=== PATIENT | female | born 1975 | race Caucasian/White ===

== ENCOUNTER 2016-10-06 10:12 | Day surgery (SDC) | payer BC ==
[~2016-10-06] VITALS: Ht 165.1 cm; Wt 86.2 kg
[~2016-10-06 10:12] MED LIST: CLC500CT PO; ESCI20TA PO; FRS325T PO; IBP600T1 PO; IBUP-1780 PO; OXYC-12 PO; OXYC-465 PO; PREN1TAB39 PO
[2016-10-06 10:18] VITALS: BP 133/91
[2016-10-06] MEDS ORDERED: ceFAZolin 1 GM/NS 50 ML IVPB IV ONE ×2 (10:45)
[2016-10-06] MEDS ORDERED: LACTATED RINGERS 1,000 ML IV PRN (11:02)
[2016-10-06 11:13] LABS: BASOPHILS % (AUTO) 0 % (0-10); EOSINOPHILS # (AUTO) 0.1 10^3/uL (0.0-0.3); EOSINOPHILS % (AUTO) 1 % (0-10); LYMPHOCYTES # (AUTO) 1.5 X 10^3 (1.0-4.0); LYMPHOCYTES % (AUTO) 22 % (12-44); MEAN CORPUSCULAR HEMOGLOBIN 29 PG (25-34); MEAN CORPUSCULAR HGB CONC 35 G/DL (32-36); MEAN CORPUSCULAR VOLUME 85 FL (80-99); MEAN PLATELET VOLUME 9.2 FL (7.4-10.4); MONOCYTES # (AUTO) 0.5 X 10^3 (0.0-1.0); MONOCYTES % (AUTO) 7 % (0-12); NEUTROPHILS # (AUTO) 4.9 X 10^3 (1.8-7.8); NEUTROPHILS % (AUTO) 70 % (42-75); PLATELET COUNT 215 10^3/uL (130-400); RED BLOOD COUNT 4.52 10^6/uL (4.35-5.85)
[2016-10-06] MEDS ORDERED: FAMOTIDINE 20MG/2ML IV (PEPCID) IV ONE (11:15)
[2016-10-06] MEDS ORDERED: ONDANSETRON 4 MG/2 ML (SDV) Z0FRAN IV ONE (11:15)
[2016-10-06] MEDS ORDERED: DEXAMETHASONE 10 MG/ML (DECADRON) 1 ML VIAL ONE (11:33)
[2016-10-06] MEDS ORDERED: ONDANSETRON 4 MG/2 ML (SDV) Z0FRAN ONE (11:33)
[2016-10-06] MEDS ORDERED: MIDAZOLAM 2 MG/2 ML (VERSED) VIAL ONE (11:33)
[2016-10-06] MEDS ORDERED: fentaNYL INJECTION 100 MCG/2 ML AMP ONE (11:33)
[2016-10-06] MEDS ORDERED: LIDOCAINE PF 2% 5 ML (XYLOCAINE) VIAL ONE (11:33)
[2016-10-06] MEDS ORDERED: SEVOFLURANE (ULTANE) 15 ML INHAL SOLN ONE (11:33)
[2016-10-06] MEDS ORDERED: proPOfol 200 MG/20 ML (DIPRIVAN) VIAL IV ONE (11:33)
[2016-10-06] MEDS ORDERED: LACTATED RINGERS 1,000 ML IV ONE (11:33)
[2016-10-06] MEDS ORDERED: BUP/EPI 0.5% 1:200,000 (MARCAINE) 10ML VIAL IJ ONE (11:44)
[2016-10-06] MEDS ORDERED: PNV11TAB5 PO (11:56)
--- NOTE | 2016-10-06 12:13 | Progress Note-Pre Operative ---
Pre-Operative Progress Note H&P Reviewed The H&P was reviewed, patient examined and no changes noted. Date Seen by Provider: Oct 06, 2016 Time Seen by Provider: 12:13 Date H&P Reviewed: Oct 06, 2016 Time H&P Reviewed: 12:13 Pre-Operative Diagnosis: missed MICAH PETERSON MD Oct 06, 2016 12:13 pm
[2016-10-06] MEDS ORDERED: D5 LR IV SOLUTION 1,000 ML IV SCH (12:14)
--- NOTE | 2016-10-06 12:14 | Progress Note-Post Operative ---
Post-Operative Progess Note Surgeon (s)/Wood Pattern Maker (s) Surgeon MICAH PETERSON MD Wood Pattern Maker: none Pre-Operative Diagnosis missed Post-Operative Diagnosis same with pathology pending Procedure & Operative Findings Date of Procedure 10/06/16 Procedure Performed/Findings D&C Anesthesia Type Gen. Estimated Blood Loss Estimated blood loss (mL): less than 100cc Specimens/Packing Specimens Removed uterine contents/products of conception Packing: none MICAH PETERSON MD Oct 06, 2016 12:14
[2016-10-06] MEDS ORDERED: MEPERIDINE (DEMEROL) INJ 100 MG/ML IM ONE (12:15)
[2016-10-06] MEDS ORDERED: KETOROLAC 30 MG/ML VIAL IVP ONE (12:15)
[2016-10-06] MEDS ORDERED: PROMETHAZINE INJ 25 MG/ML (PHENERGAN) AMP IM ONE (12:15)
[2016-10-06] MEDS ORDERED: ONDANSETRON 4 MG/2 ML (SDV) Z0FRAN IVP PRN ×2 (12:15→13:15)
[2016-10-06] MEDS ORDERED: oxyCODONE/APAP 10/325MG (PERCOCET 10) TABLET PO PRN (12:15)
[2016-10-06] MEDS ORDERED: OXYC-202 PO ×2 (12:16→14:34)
--- NOTE | 2016-10-06 12:17 | Discharge Instructions ---
Discharge Instructions Discharge Medications New, Converted or Re-Newed RX: RX on Chart Patient Instructions Patient Instructions: as directed Return to The Hospital For: as directed Activity & Diet Discharge Diet: No Restrictions Activity as Tolerated: Yes Orders-Post D/C & Referrals Follow Up Appt: Call to make follow up appt. for patient in 2 weeks. Activity: Rest for 24 hours, than as tolerated. Diet: As tolerated-Clear Liquids only if nauseated. May shower or tub bathe as desired. No driving for 24 hours, no alcoholic beverages for 24 hours, and nothing per vagina (no tampons, douching, or [id number]) for 2 weeks. Patient to return to the clinic as soon as possible for: Temperature greater than 101F, Severe Pain, Foul discharge from incision or vagina, Excessive Bleeding (more than a period). MICAH PETERSON MD Oct 06, 2016 12:17 pm
--- OUTSIDE RECORDS SUMMARY | 2016-10-06 12:22 | XMS REPORT | Continuity of Care Document ---
Author Author [facility] Organization [facility] Address Unknown Phone Unavailable Allergies Active Description Code Type Severity Reaction Onset Reported/Identified Relationship to Patient Clinical Status Yes NKANo Known Allergies NKA Miscellaneous Allergy Unknown N/ A 01/11/2006 Yes No Known Drug Allergies [id number] Drug Allergy Mild N/A 01/09/2008 Medications Problems Date Dx Coded Attending Type Code Diagnosis Diagnosed By 10/28/2010 Ot 280.9 IRON DEFIC ANEMIA NOS 10/28/2010 Ot 285.1 AC POSTHEMORRHAG ANEMIA 10/28/2010 Ot 648.21 ANEMIA-DELIVERED 10/28/2010 Ot 648.22 ANEMIA-DELIVERED W P/P 10/28/2010 Ot 654.21 PREV DELIVRY W/ OR W/O MENT ANT 10/28/2010 Ot 663.31 CORD ENTANGLE NEC-DELIV 10/28/2010 Ot V06.1 [id number], COMBINED [ 10/28/2010 Ot V27.0 DELIVER-SINGLE LIVEBORN 12/21/2011 Ot 564.00 UNSPEC CONSTIPATION 12/21/2011 Ot 787.99 OTHER GI SYSTEM SYMPTOMS 10/26/2014 Ot 654.23 10/26/2014 Ot V72.63 10/26/2014 Ot V74.8 10/26/2014 Ot 564.00 10/26/2014 Ot 787.3 10/26/2014 Ot V72.84 12/23/2014 ANDREZ FRIED, EMILY Lacy Ot F17.210 NICOTINE DEPENDENCE, CIGARETTES, UNCOMPL 12/23/2014 ANDREZ FRIED, EMILY Lacy Ot G43.909 MIGRAINE, UNSP, NOT INTRACTABLE, WITHOUT 02/01/2015 Ot 654.23 02/01/2015 Ot V72.63 02/01/2015 Ot V74.8 02/01/2015 Ot 564.00 02/01/2015 Ot 787.3 02/01/2015 Ot V72.84 02/01/2015 KILO FAGAN Ot V76.12 02/01/2015 KRISTEN FRIED, MICAH Medrano Ot O00.9 ECTOPIC , UNSPECIFIED 02/01/2015 KRISTEN FRIED, MICAH Medrano Ot O02.1 MISSED 11/22/2015 Ot 654.23 PREV DELIVERY, ANTEPARTUM COND 11/22/2015 Ot V72.63 PRE-PROCEDURAL LABORATORY EXAMINATION 11/22/2015 Ot V74.8 SCREEN-BACTERIAL DIS NEC 11/22/2015 Ot 564.00 UNSPEC CONSTIPATION 11/22/2015 Ot 787.3 FLATUL/ERUCTAT/GAS PAIN 11/22/2015 Ot V72.84 EXAM PRE-OPERATIVE NOS 11/22/2015 KILO FAGAN Ot V76.12 OTH SCREEN MAMMO-MALIGN NEOPLASM OF SUZIE 11/22/2015 MICAH PETERSON MD Ot Z01.818 ENCOUNTER FOR OTHER PREPROCEDURAL EXAMIN 11/27/2015 ORI ALONZO MD Ot Z12.31 ENCNTR SCREEN MAMMOGRAM FOR MALIGNANT NE 12/13/2015 ORI ALONZO MD Ot Z12.31 ENCNTR SCREEN MAMMOGRAM FOR MALIGNANT NE 05/29/2016 Ot 564.00 UNSPEC CONSTIPATION 05/29/2016 Ot 787.3 FLATUL/ERUCTAT/GAS PAIN 05/29/2016 Ot V72.84 EXAM PRE-OPERATIVE NOS 05/29/2016 KILO FAGAN Ot V76.12 OTH SCREEN MAMMO-MALIGN NEOPLASM OF SUZIE 05/29/2016 MICAH PETERSON MD Ot Z01.818 ENCOUNTER FOR OTHER PREPROCEDURAL EXAMIN 05/29/2016 ORI ALONZO MD Ot Z12.31 ENCNTR SCREEN MAMMOGRAM FOR MALIGNANT NE 06/22/2016 Ot 564.00 UNSPEC CONSTIPATION 06/22/2016 Ot 787.3 FLATUL/ERUCTAT/GAS PAIN 06/22/2016 Ot V72.84 EXAM PRE-OPERATIVE NOS 06/22/2016 KILO FAGAN Ot V76.12 OTH SCREEN MAMMO-MALIGN NEOPLASM OF SUZIE 06/22/2016 MICAH PETERSON MD Ot Z01.818 ENCOUNTER FOR OTHER PREPROCEDURAL EXAMIN 06/22/2016 ORI ALONZO MD Ot Z12.31 ENCNTR SCREEN MAMMOGRAM FOR MALIGNANT NE Procedures Code Description Performed By Performed On 74.1 10/24/2010 Results Encounters ACCT No. Visit Date/Time Discharge Status Pt. Type Provider Facility Loc./Unit Complaint [id number] 11/22/2015 10:32:00 2015 23:59:59 CLS Outpatient ORI ALONZO MD [facility] RAD Z00.00,Z12.31, E34.9 [id number] 02/01/2015 08:42:00 2014 23:59:59 CLS Outpatient MICAH PETERSON MD [facility] PREOP PELVIC MASS [id number] 02/01/2015 13:11:00 2014 18:52:00 DIS Outpatient MICAH PETERSON MD [facility] SDC PELVIC MASS,BLEEDING, POSS ECTOPIC PREG. [id number] 12/23/2014 08:34:00 2014 11:50:00 DIS Emergency EMILY MAGUIRE MD [facility] ER MIGRAINE [id number] 10/26/2014 09:21:00 2014 23:59:59 CLS Outpatient KILO FAGAN [facility] RAD SCREENING [id number] 10/26/2014 09:21:00 Document Registration [id number] 10/26/2014 09:21:00 Document Registration [id number] 10/26/2014 09:21:00 Document Registration [id number] 12/21/2011 06:36:00 Document Registration [id number] 12/18/2011 08:13:00 Document Registration
[2016-10-06] MEDS ORDERED: KETOROLAC 30 MG/ML VIAL ONE (12:59)
[2016-10-06] MEDS ORDERED: morphine INJ 10 MG/ML 1ML (SYR OR VIAL) ONE (12:59)
[2016-10-06] MEDS: morphine INJ 10 MG/ML 1ML (SYR OR VIAL) IVP PRN ×2 (13:11→13:19)
--- NOTE | 2016-10-06 13:15 | OPERATIVE REPORT ---
DATE OF SERVICE: 10/06/2016 PREOPERATIVE DIAGNOSIS: Missed . POSTOPERATIVE DIAGNOSIS: Missed . OPERATIVE PROCEDURE: D and C. OPERATIVE DESCRIPTION: With the patient in the supine position under satisfactory general anesthesia, she was repositioned in the dorsal lithotomy position in the Shahid stirrups and prepped and draped in the usual fashion for vaginal surgery. The urinary bladder was emptied with a straight catheter. A weighted speculum was placed in the posterior fornix with the cervix was exposed and grasped anteriorly with the single tooth tenaculum. The uterus sounded to 11 cm with the uterine sound. The cervix was then serially dilated with Michael dilators to a number 19 Michael. A #8 curved suction curette was then introduced and the endometrial cavity suction curettaged with removal of a moderate amount of trophoblastic and decidual appearing tissue, blood clot and debris. That tissue was placed in a specimen container and floated with saline revealing very distinct syncytiotrophoblasts. This confirmed the presence of an intrauterine failed . The tenaculum was removed. There was some bleeding from the puncture site. This was controlled with figure-of-8 suture of 2-0 Vicryl. Sponge and needle counts were correct on completion of the procedure. Estimated blood loss was minimal. The patient tolerated the procedure well, was uneventfully awakened from her general anesthesia and transferred to recovery room in stable condition with plans for discharge home PAR. Job ID: [id number] DocumentID: [id number] Dictated Date: 10/06/2016 12:45:15 Development Vice President Date: 10/06/2016 13:14:51 Dictated By: MICAH PETERSON MD MTDD
[2016-10-06 13:45] VITALS: BP 143/80
[2016-10-06 14:15] VITALS: BP 134/68
[2016-10-06 14:45] VITALS: BP 130/72
[2016-10-06 15:15] VITALS: BP 130/72
== END 2016-10-06 15:15 | disposition home or self-care (01) ==
LOC: SDC 10:12
PROVIDERS: ATTEND Obstetrics & Gynecology
DX: O02.1 Missed abortion (principal)
CPT/HCPCS: 36415; 85025; 87081; 88305

== ENCOUNTER → 2017-05-28 | Outpatient (CLI) | payer BC ==
[~2017-05-28] MED LIST changes: +METO-333 PO; +OXYC-202 PO; +PNV11TAB5 PO
--- NOTE | 2017-05-28 13:52 | Diagnostic Imaging Report ---
Indication: Routine screening. Comparison: Made to prior study from 11/22/2015 and 10/26/2014. Findings: Both breasts are heterogeneously dense, limiting the sensitivity of mammography. The parenchymal pattern is stable. No discrete mass or malignant appearing microcalcifications are seen. The axillae are unremarkable. Impression: BI-RADS category 1 No mammographic features suspicious for malignancy are identified. ACR BI-RADS Category 1: Negative. Result letter will be mailed to the patient. Note: At least 10% of breast cancer is not imaged by mammography. Dictated by: Dictated on workstation # [id number]
== END ==
LOC: RAD 10:46
PROVIDERS: ATTEND Nurse Practitioner Family
DX: Z12.31 Encounter for screening mammogram for malignant neoplasm of breast (principal)
CPT/HCPCS: 77067

== ENCOUNTER 2017-07-23 12:51 | Emergency (ER) | payer BC ==
[~2017-07-23] VITALS: Ht 165.1 cm; Wt 82.6 kg
[~2017-07-23 12:51] MED LIST changes: -METO-333 PO
--- NOTE | 2017-07-23 13:24 | ED General ---
General Stated Complaint: MEDICATION REACTION X 1 DAY Source of Information: Patient Exam Limitations: No Limitations History of Present Illness Date Seen by Provider: Jul 23, 2017 Time Seen by Provider: 13:20 Initial Comments to ER per private vehicle from home with reports of a medication reaction. She has a history of migraines and she takes intranasal Imitrex for this. She had a migraine last night and use the Imitrex which she has used many times before without difficulty or adverse reaction. She also checked her blood pressure and found it to be high. She was started on lisinopril yesterday so she took one of these lisinopril at about 3:30 this morning. About 2 hours ago while she was at the grocery store she felt confused, very anxious,had trouble speaking, and states that her hands seemed to not work well. she did not have a headache at that time.At this time she only reports some palpitations and anxiety which she takes Wellbutrin for. she denies shortness of breath but states that her jaw feels clenched. Severity: Moderate Allergies and Home Medications Allergies Coded Allergies: NKANo Known Allergies (Verified Allergy, Unknown, 01/11/06) No Known Drug Allergies (Unverified , 01/09/08) Home Medications Metoprolol Tartrate 25 Mg Tablet, 25 MG PO BID Prescribed by: CJ BLOOM on 07/23/17 1418 Oxycodone HCl/Acetaminophen 1 Each Tablet, 1-2 TAB PO Q4H PRN for PAIN MAY TAKE ONE OR TWO TABLETS BY MOUTH EVERY 4 HOURS NEEDED FOR PAIN. DO NOT EXCEED 3000 MG TYLENOL(ACETAMINOPHEN)IN A 24 HR PERIOD. (NO MORE THAN 9 TABS IN 24 HRS) LAST PAIN PILL, ONE TAB, GIVEN AT 2:14 PM. Prescribed by: JETHRO MORENO on 10/06/16 1434 Grn784/FA/Omega3/Dha/Fish Oil 1 Each Tab.chew, 1 EACH PO DAILY Prescribed by: JETHRO MORENO on 10/06/16 1156 Patient Home Medication List Home Medication List Reviewed: Yes Review of Systems Constitutional: see HPI EENTM: see HPI Respiratory: no symptoms reported Cardiovascular: no symptoms reported Genitourinary: no symptoms reported Musculoskeletal: no symptoms reported Skin: no symptoms reported Psychiatric/Neurological: See HPI, Anxiety, Paresthesia, Tingling Hematologic/Lymphatic: No Symptoms Reported Past Dcykutk-Uyxdak-Wjyboc Hx Patient Social History Former Smoker, Quit: Feb 15, 2013 Recent Foreign Travel: No Contact w/Someone Who Travel: No Recent Hopitalizations: No (SURGERIES) Seasonal Allergies Seasonal Allergies: No Past Medical History Section Reproductive Disorders: Yes Sexually Transmitted Disease: No Chronic Constipation Anxiety, Depression Adverse Reaction/Blood Tranf: No Physical Exam Vital Signs Vital Signs - First Documented 07/23/17 13:12 Temp 97.9 Pulse 103 Resp 18 B/P (MAP) 161/100 (120) Pulse Ox 99 Capillary Refill : General Appearance: No Apparent Distress, WD/WN, Anxious (tearful) Eyes: Bilateral Eye Normal Inspection, Bilateral Eye PERRL, Bilateral Eye EOMI HEENT: PERRL/EOMI, TMs Normal Neck: Full Range of Motion, Normal Inspection Respiratory: Normal Breath Sounds, No Accessory Muscle Use, No Respiratory Distress Cardiovascular: Regular Rate, Rhythm, Normal Peripheral Pulses Gastrointestinal: Non Tender, Soft Extremity: Normal Capillary Refill, Normal Inspection Neurologic/Psychiatric: Alert, Oriented x3, No Motor/Sensory Deficits Skin: Normal Color, Warm/Dry Progress/Results/Core Measures Suspected Sepsis SIRS Temperature: Pulse: Respiratory Rate: Laboratory Tests 07/23/17 13:29: White Blood Count 4.8 Blood Pressure / Mean: Laboratory Tests 07/23/17 13:29: Creatinine 0.97, Platelet Count 239, Total Bilirubin 0.6 Results/Orders Lab Results Laboratory Tests Test 07/23/17 13:29 07/23/17 13:55 Range/Units White Blood Count 4.8 4.3-11.0 10^3/uL Red Blood Count 4.82 4.35-5.85 10^6/uL Hemoglobin 14.3 11.5-16.0 G/DL Hematocrit 41 35-52 % Mean Corpuscular Volume 84 80-99 FL Mean Corpuscular Hemoglobin 30 25-34 PG Mean Corpuscular Hemoglobin Concent 35 32-36 G/DL Red Cell Distribution Width 12.7 10.0-14.5 % Platelet Count 239 130-400 10^3/uL Mean Platelet Volume 8.9 7.4-10.4 FL Neutrophils (%) (Auto) 66 42-75 % Lymphocytes (%) (Auto) 25 12-44 % Monocytes (%) (Auto) 8 0-12 % Eosinophils (%) (Auto) 1 0-10 % Basophils (%) (Auto) 0 0-10 % Neutrophils # (Auto) 3.1 1.8-7.8 X 10^3 Lymphocytes # (Auto) 1.2 1.0-4.0 X 10^3 Monocytes # (Auto) 0.4 0.0-1.0 X 10^3 Eosinophils # (Auto) 0.1 0.0-0.3 10^3/uL Basophils # (Auto) 0.0 0.0-0.1 10^3/uL Sodium Level 137 135-145 MMOL/L Potassium Level 3.8 3.6-5.0 MMOL/L Chloride Level 105 98-107 MMOL/L Carbon Dioxide Level 22 21-32 MMOL/L Anion Gap 10 5-14 MMOL/L Blood Urea Nitrogen 8 7-18 MG/DL Creatinine 0.97 0.60-1.30 MG/DL Estimat Glomerular Filtration Rate > 60 BUN/Creatinine Ratio 8 Glucose Level 94 70-105 MG/DL Calcium Level 9.5 8.5-10.1 MG/DL Total Bilirubin 0.6 0.1-1.0 MG/DL Aspartate Amino Transf (AST/SGOT) 16 5-34 U/L Alanine Aminotransferase (ALT/SGPT) 13 0-55 U/L Alkaline Phosphatase 62 40-136 U/L Total Protein 8.0 6.4-8.2 GM/DL Albumin 4.6 H 3.2-4.5 GM/DL Thyroid Stimulating Hormone (TSH) 0.86 0.35-4.94 UIU/ML Serum Test, Qualitative NEGATIVE NEGATIVE Urine Color YELLOW Urine Clarity CLEAR Urine pH 7 5-9 Urine Specific [place] 1.010 L 1.016-1.022 Urine Protein NEGATIVE NEGATIVE Urine Glucose (UA) NEGATIVE NEGATIVE Urine Ketones NEGATIVE NEGATIVE Urine Nitrite NEGATIVE NEGATIVE Urine Bilirubin NEGATIVE NEGATIVE Urine Urobilinogen NORMAL NORMAL MG/DL Urine Leukocyte Esterase NEGATIVE NEGATIVE Urine RBC (Auto) NEGATIVE NEGATIVE Urine RBC NONE /HPF Urine WBC NONE /HPF Urine Squamous Epithelial Cells 10-25 H /HPF Urine Crystals NONE /LPF Urine Bacteria TRACE /HPF Urine Casts NONE /LPF Urine Mucus NEGATIVE /LPF Urine Culture Indicated NO My Orders Orders - CJ BLOOM DOUBLE END TENONER OPERATOR Cbc With Automated Diff (07/23/17 13:18) Thyroid Stimulating Hormone (07/23/17 13:18) Comprehensive Metabolic Panel (07/23/17 13:18) Hcg,Qualitative Serum (07/23/17 13:18) Ua Culture If Indicated (07/23/17 13:18) Ct Head Wo (07/23/17 13:18) Metoprolol Tartrate (Ir) Tab (Lopressor (07/23/17 13:30) Medications Given in ED Current Medications Medications Dose Ordered Sig/Adina Route Start Time Stop Time Status Last Admin Dose Admin Metoprolol Tartrate 25 mg ONCE ONCE PO 07/23/17 13:30 07/23/17 13:31 DC 07/23/17 13:49 25 MG Vital Signs/I&O 07/23/17 13:12 Temp 97.9 Pulse 103 Resp 18 B/P (MAP) 161/100 (120) Pulse Ox 99 Capillary Refill : Departure Impression Primary Impression: Adverse effects of medication Disposition: HOME, SELF-CARE Condition: Stable Departure-Patient Inst. Decision time for Depature: 14:17 Referrals: GWEN EDUARDO MD (PCP/Family) Primary Care Physician Patient Instructions: NO INSTRUCTIONS GIVEN Add. Discharge Instructions: 1. Medication as directed. Stop the lisinopril. Start the new medication called metoprolol. Scripts Metoprolol Tartrate (Metoprolol Tartrate) 25 Mg Tablet 25 MG PO BID, #14 TAB Prov: CJ BLOOM APRN 07/23/17 CJ BLOOM APRN Jul 23, 2017 13:24
[2017-07-23] MEDS ORDERED: meTOprolol TARTRATE 25 MG (LOPRESSOR) TABLET PO ONE (13:30)
[2017-07-23 13:35] LABS: BASOPHILS % (AUTO) 0 % (0-10); EOSINOPHILS # (AUTO) 0.1 10^3/uL (0.0-0.3); EOSINOPHILS % (AUTO) 1 % (0-10); HEMATOCRIT 41 % (35-52); HEMOGLOBIN 14.3 G/DL (11.5-16.0); LYMPHOCYTES # (AUTO) 1.2 X 10^3 (1.0-4.0); LYMPHOCYTES % (AUTO) 25 % (12-44); MEAN CORPUSCULAR HEMOGLOBIN 30 PG (25-34); MEAN CORPUSCULAR HGB CONC 35 G/DL (32-36); MEAN CORPUSCULAR VOLUME 84 FL (80-99); MEAN PLATELET VOLUME 8.9 FL (7.4-10.4); MONOCYTES # (AUTO) 0.4 X 10^3 (0.0-1.0); MONOCYTES % (AUTO) 8 % (0-12); NEUTROPHILS # (AUTO) 3.1 X 10^3 (1.8-7.8); NEUTROPHILS % (AUTO) 66 % (42-75); PLATELET COUNT 239 10^3/uL (130-400); RED BLOOD COUNT 4.82 10^6/uL (4.35-5.85); RED CELL DISTRIBUTION WIDTH 12.7 % (10.0-14.5); WHITE BLOOD COUNT 4.8 10^3/uL (4.3-11.0)
[2017-07-23 14:01] LABS: BILIRUBIN,URINE NEGATIVE (NEGATIVE); CLARITY,URINE CLEAR; COLOR,URINE YELLOW; GLUCOSE, URINE (UA) NEGATIVE (NEGATIVE); KETONES,URINE NEGATIVE (NEGATIVE); LEUKOCYTE ESTERASE ,URINE NEGATIVE (NEGATIVE); NITRITE,URINE NEGATIVE (NEGATIVE); PH,URINE 7 (5-9); PROTEIN,URINE NEGATIVE (NEGATIVE); UROBILINOGEN,URINE NORMAL (NORMAL)
[2017-07-23 14:02] LABS: ALANINE AMINOTRANSFERASE 13 U/L (0-55); ALBUMIN 4.6 GM/DL (3.2-4.5); ALKALINE PHOSPHATASE 62 U/L (40-136); BILIRUBIN,TOTAL 0.6 MG/DL (0.1-1.0); BUN/CREATININE RATIO 8; CALCIUM 9.5 MG/DL (8.5-10.1); CARBON DIOXIDE 22 MMOL/L (21-32); CHLORIDE 105 MMOL/L (98-107); CREATININE SERUM 0.97 MG/DL (0.60-1.30); GFR ESTIMATED > 60; GLUCOSE 94 MG/DL (70-105); POTASSIUM 3.8 MMOL/L (3.6-5.0); SODIUM 137 MMOL/L (135-145)
[2017-07-23 14:08] LABS: BACTERIA,URINE TRACE /HPF
--- NOTE | 2017-07-23 14:14 | Diagnostic Imaging Report ---
INDICATION: Dysarthria. TECHNIQUE: Routine non contrast-enhanced axial images were obtained from the skull base to the vertex. COMPARISON: 12/23/2014. FINDINGS: The ventricles and cortical sulci are normal in size and contour. There is no midline shift or mass-effect. No acute intra-axial hemorrhage is seen. There are no abnormal areas of increased or decreased density to suggest acute hemorrhage or edema. No extra-axial masses or collections are present. The bony calvarium is intact. The visualized paranasal sinuses are unremarkable. The mastoid air cells are clear. IMPRESSION: 1. No acute intracranial abnormality. No CT evidence of mass, acute infarct or intracranial hemorrhage. Dictated by: Dictated on workstation # [id number]
[2017-07-23] MEDS ORDERED: METO-333 PO (14:18)
[2017-07-23 14:26] VITALS: BP 161/100
== END 2017-07-23 14:26 | disposition home or self-care (01) ==
LOC: EDUNIT# 12:51 → ER 12:53
DX: R41.0 Disorientation, unspecified (principal); F41.9 Anxiety disorder, unspecified; R47.89 Other speech disturbances; T46.4X5A Adverse effect of angiotensin-converting-enzyme inhibitors, initial encounter; F32.9 Major depressive disorder, single episode, unspecified; G43.909 Migraine, unspecified, not intractable, without status migrainosus; Z87.59 Personal history of other complications of pregnancy, childbirth and the puerperium; Z87.19 Personal history of other diseases of the digestive system; Z87.891 Personal history of nicotine dependence
CPT/HCPCS: 36415; 70450; 80053; 81000; 84443; 84703; 85025

== ENCOUNTER 2017-07-27 12:13 | Outpatient (RCR) | payer BC ==
[~2017-07-27 12:13] MED LIST changes: +METO-333 PO; -OXYC-202 PO; +OXYC1TAB12 PO
== END 2017-10-25 | disposition home or self-care (01) ==
LOC: CARD 12:13
PROVIDERS: ATTEND Family Medicine
DX: R00.2 Palpitations (principal)
CPT/HCPCS: 93225; 93226

== ENCOUNTER → 2017-08-12 | Outpatient (CLI) | payer BC ==
[~2017-08-12] MED LIST changes: +OXYC-202 PO; -OXYC1TAB12 PO
== END ==
LOC: RAD 10:20
PROVIDERS: ATTEND Internal Medicine Cardiovascular Disease
DX: R06.02 Shortness of breath (principal); R00.2 Palpitations; I49.3 Ventricular premature depolarization; E87.6 Hypokalemia; E78.4 Other hyperlipidemia; I10 Essential (primary) hypertension
CPT/HCPCS: 93306

== ENCOUNTER → 2017-08-13 | Outpatient (CLI) | payer BC ==
[2017-08-13 10:04] LABS: BUN/CREATININE RATIO 14; CALCIUM 8.8 MG/DL (8.5-10.1); CARBON DIOXIDE 22 MMOL/L (21-32); CHLORIDE 110 MMOL/L (98-107); CREATININE SERUM 0.84 MG/DL (0.60-1.30); GFR ESTIMATED > 60; GLUCOSE 98 MG/DL (70-105); MAGNESIUM 2.1 MG/DL (1.8-2.4); SODIUM 140 MMOL/L (135-145)
[2017-08-27 07:31] LABS: MISC LAB TEST & RESULT ALDO/PRA RATIO
== END ==
LOC: LAB 08:59
PROVIDERS: ATTEND Internal Medicine Cardiovascular Disease
DX: R06.02 Shortness of breath (principal); R00.2 Palpitations; I49.3 Ventricular premature depolarization; E87.6 Hypokalemia; E78.4 Other hyperlipidemia; I10 Essential (primary) hypertension
CPT/HCPCS: 36415; 80048; 82088; 83735

== ENCOUNTER → 2018-02-04 | Outpatient (CLI) | payer BC ==
[~2018-02-04] MED LIST changes: -OXYC-202 PO; +OXYC1TAB12 PO
[2018-02-04 17:01] LABS: BASOPHILS % (AUTO) 0 % (0-10); EOSINOPHILS # (AUTO) 0.1 10^3/uL (0.0-0.3); EOSINOPHILS % (AUTO) 1 % (0-10); HEMATOCRIT 40 % (35-52); HEMOGLOBIN 14.1 G/DL (11.5-16.0); LYMPHOCYTES # (AUTO) 0.7 X 10^3 (1.0-4.0); LYMPHOCYTES % (AUTO) 9 % (12-44); MEAN CORPUSCULAR HEMOGLOBIN 29 PG (25-34); MEAN CORPUSCULAR HGB CONC 35 G/DL (32-36); MEAN CORPUSCULAR VOLUME 84 FL (80-99); MONOCYTES # (AUTO) 0.4 X 10^3 (0.0-1.0); MONOCYTES % (AUTO) 4 % (0-12); NEUTROPHILS # (AUTO) 6.9 X 10^3 (1.8-7.8); NEUTROPHILS % (AUTO) 86 % (42-75); PLATELET COUNT 189 10^3/uL (130-400); RED CELL DISTRIBUTION WIDTH 13.3 % (10.0-14.5); WHITE BLOOD COUNT 8.1 10^3/uL (4.3-11.0)
[2018-02-04 17:19] LABS: ALANINE AMINOTRANSFERASE 18 U/L (0-55); ALBUMIN 4.5 GM/DL (3.2-4.5); ALKALINE PHOSPHATASE 72 U/L (40-136); BILIRUBIN,TOTAL 0.7 MG/DL (0.1-1.0); BUN/CREATININE RATIO 16; CALCIUM 9.6 MG/DL (8.5-10.1); CARBON DIOXIDE 22 MMOL/L (21-32); CHLORIDE 101 MMOL/L (98-107); CREATININE SERUM 0.99 MG/DL (0.60-1.30); GFR ESTIMATED > 60; GLUCOSE 91 MG/DL (70-105); SODIUM 134 MMOL/L (135-145); TOTAL PROTEIN 7.6 GM/DL (6.4-8.2)
== END ==
LOC: LAB 16:31
PROVIDERS: ATTEND Nurse Practitioner Family
DX: R53.83 Other fatigue (principal); R53.81 Other malaise
CPT/HCPCS: 36415; 80053; 85025; 86308; 87804

== ENCOUNTER → 2018-04-05 | Outpatient (CLI) | payer BC ==
[~2018-04-05] MED LIST changes: -CLC500CT PO; -ESCI20TA PO; -FRS325T PO; +GADOBUTROL 10 MMOL/10 ML (GADAVIST) VIAL IV ONE; -IBP600T1 PO; -IBUP-1780 PO; -METO-333 PO; -OXYC-12 PO; -OXYC-465 PO; -OXYC1TAB12 PO; -PNV11TAB5 PO; -PREN1TAB39 PO
--- NOTE | 2018-04-05 10:20 | Diagnostic Imaging Report ---
PROCEDURE: MR imaging of the brain with and without contrast. TECHNIQUE: Multiplanar, multisequence MR imaging of the brain was performed with and without contrast. INDICATION: Migraine headaches. New diagnosis of Lyme disease. Memory disturbances. COMPARISON: CT head without contrast 07/23/2017. FINDINGS: No abnormal intracranial signal or enhancement. No restricted water diffusion or hemosiderin deposition. Normal morphology including the major midline structures, sella, posterior fossa and cerebellopontine angle. The orbits are unremarkable on this nondedicated exam. No hydrocephalus or extra-axial fluid collections. Normal intracranial flow voids. The paranasal sinuses and mastoids are clear. Normal bone marrow signal. IMPRESSION: Normal MRI of the brain without and with IV contrast. Dictated by: Dictated on workstation # [id number]
== END ==
LOC: RAD 08:52
PROVIDERS: ATTEND Nurse Practitioner Family
DX: I89.9 Noninfective disorder of lymphatic vessels and lymph nodes, unspecified (principal); R41.3 Other amnesia; G43.909 Migraine, unspecified, not intractable, without status migrainosus
CPT/HCPCS: 70553

== ENCOUNTER → 2018-08-24 | Outpatient (CLI) | payer BC ==
[~2018-08-24] MED LIST changes: +CLC500CT PO; +ESCI20TA PO; +FRS325T PO; -GADOBUTROL 10 MMOL/10 ML (GADAVIST) VIAL IV ONE; +IBP600T1 PO; +IBUP-1780 PO; +METO-333 PO; +OXYC-12 PO; +OXYC-465 PO; +OXYC1TAB12 PO; +PNV11TAB5 PO; +PREN1TAB39 PO
--- NOTE | 2018-08-24 16:52 | Diagnostic Imaging Report ---
INDICATION: Routine screening. COMPARISON: 05/28/2017 and 11/22/2015. TECHNIQUE: 2D and 3D bilateral screening mammography was performed with CAD. FINDINGS: Both breasts remain heterogeneously dense, limiting the sensitivity of mammography. The parenchymal pattern is stable. No mass or malignant appearing microcalcifications are seen. The axillae are unremarkable. IMPRESSION: No mammographic features suspicious for malignancy are identified. ACR BI-RADS Category 1: Negative. Result letter will be mailed to the patient. Note: At least 10% of breast cancer is not imaged by mammography. Dictated by: Dictated on workstation # [id number]
== END ==
LOC: RAD 14:51
PROVIDERS: ATTEND Nurse Practitioner Family
DX: Z12.31 Encounter for screening mammogram for malignant neoplasm of breast (principal)
CPT/HCPCS: 77067

== ENCOUNTER 2018-11-01 15:32 | Emergency (ER) | payer BC ==
[~2018-11-01] VITALS: Ht 165.1 cm; Wt 95.8 kg
[2018-11-01] MEDS ORDERED: DOXY100C2 (15:42)
[2018-11-01] MEDS ORDERED: KETOROLAC 30 MG/ML VIAL IVP STA (15:53)
[2018-11-01] MEDS ORDERED: DEXAMETHASONE 10 MG/ML (DECADRON) 1 ML VIAL IV ONE (16:00)
[2018-11-01] MEDS ORDERED: hydrALAZINE (APESOLINE) 20 MG/ML VIAL IV ONE (16:00)
[2018-11-01] MEDS ORDERED: amLODIPine 5 MG (NORVASC) TAB PO ONE (16:00)
[2018-11-01 16:10] LABS: BASOPHILS % (AUTO) 1 % (0-10); EOSINOPHILS # (AUTO) 0.3 10^3/uL (0.0-0.3); EOSINOPHILS % (AUTO) 4 % (0-10); HEMATOCRIT 41 % (35-52); HEMOGLOBIN 14.1 G/DL (11.5-16.0); LYMPHOCYTES # (AUTO) 2.5 X 10^3 (1.0-4.0); LYMPHOCYTES % (AUTO) 32 % (12-44); MEAN CORPUSCULAR HEMOGLOBIN 28 PG (25-34); MEAN CORPUSCULAR HGB CONC 34 G/DL (32-36); MEAN CORPUSCULAR VOLUME 83 FL (80-99); MEAN PLATELET VOLUME 9.1 FL (7.4-10.4); MONOCYTES # (AUTO) 0.7 X 10^3 (0.0-1.0); MONOCYTES % (AUTO) 9 % (0-12); NEUTROPHILS # (AUTO) 4.4 X 10^3 (1.8-7.8); NEUTROPHILS % (AUTO) 55 % (42-75); PLATELET COUNT 280 10^3/uL (130-400); RED CELL DISTRIBUTION WIDTH 13.6 % (10.0-14.5)
[2018-11-01 16:30] LABS: ALANINE AMINOTRANSFERASE 15 U/L (0-55); ALBUMIN 4.5 GM/DL (3.2-4.5); ALKALINE PHOSPHATASE 82 U/L (40-136); BILIRUBIN,TOTAL 0.5 MG/DL (0.1-1.0); BUN/CREATININE RATIO 11; CALCIUM 9.7 MG/DL (8.5-10.1); CARBON DIOXIDE 27 MMOL/L (21-32); CHLORIDE 103 MMOL/L (98-107); CREATININE SERUM 0.88 MG/DL (0.60-1.30); GFR ESTIMATED > 60; GLUCOSE 91 MG/DL (70-105); POTASSIUM 3.8 MMOL/L (3.6-5.0); SODIUM 141 MMOL/L (135-145)
--- NOTE | 2018-11-01 16:33 | ED General ---
General Chief Complaint: Cardiac/General Problems Stated Complaint: HIGH BP;HEADACHE Nursing Triage Note: COMPLAINS OF HYPERTENSION AND SEVERE HEADACHE X2 DAYS STARTED TAKING DOXY AND CORICIDEN ALONG WITH HER BP MEDS AND THINKS IT IS CAUSING THIS. HAS NOT TAKEN ANYTHING FOR THE HEADACHE. Nursing Sepsis Screen: No Definite Risk Source of Information: Patient Exam Limitations: No Limitations History of Present Illness Date Seen by Provider: Nov 01, 2018 Time Seen by Provider: 15:47 Initial Comments Here with complaint of hypertension and headache over the last couple of days. Currently on doxycycline for possible walking pneumonia. Has had quite a bit of coughing over the last several days which is causing her headaches. States that she feels like her head is going to explode. She has been taking Coricidin HBP because of her history of high blood pressure. Notes that her blood pressure is 200 over 140s. Feels quite uncomfortable. States that she feels pressure behind her eyes. Denies chest pain or breathing problems but does admit to the cough. Not currently febrile and denies recent fevers. Denies nausea or vomiting. Timing/Duration: 2-3 Days, Changing Over Time, Getting Worse Severity: Moderate Modifying Factors: worse with Medication Associated Systoms: No Chest Pain; Cough; No Fever/Chills; Headaches; No Nausea/Vomiting, No Shortness of Air, No Weakness Allergies and Home Medications Allergies Coded Allergies: NKANo Known Allergies (Verified Allergy, Unknown, 01/11/06) No Known Drug Allergies (Unverified , 01/09/08) Home Medications Metoprolol Tartrate 25 Mg Tablet, 25 MG PO BID Prescribed by: CJ BLOOM on 07/23/17 1418 Patient Home Medication List Home Medication List Reviewed: Yes Review of Systems Review of Systems Constitutional: see HPI; No chills, No fever EENTM: see HPI Respiratory: see HPI Cardiovascular: see HPI; No palpitations, No syncope Gastrointestinal: No abdominal pain, No nausea, No vomiting All Other Systems Reviewed Negative Unless Noted: Yes Past Qllotla-Oydpea-Dpzqoc Hx Past Med/Social Hx: Reviewed Nursing Past Med/Soc Hx Patient Social History Alcohol Use: Denies Use Recreational Drug Use: No Smoking Status: Never a Smoker Former Smoker, Quit: Feb 15, 2013 2nd Hand Smoke Exposure: No Recent Foreign Travel: No Contact w/Someone Who Travel: No Recent Infectious Disease Expo: No Recent Hopitalizations: No (SURGERIES) Seasonal Allergies Seasonal Allergies: No Past Medical History Surgeries: Yes (C/S X2, D&C, LAPAROSCOPY FOR ECTOPIC, WISDOM) Section Respiratory: No Cardiac: No Neurological: Yes Reproductive Disorders: Yes Sexually Transmitted Disease: No Gastrointestinal: Yes Chronic Constipation Musculoskeletal: No Endocrine: No Cancer: No Psychosocial: Yes Anxiety, Depression Integumentary: No 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 0oz. 82.376634mc; 35.00 BMI Method:Stated General Appearance: WD/WN, Anxious, Mild Distress Neck: Non Tender, Supple Respiratory: Lungs Clear, Normal Breath Sounds Cardiovascular: Regular Rate, Rhythm, No Murmur Gastrointestinal: Non Tender, Soft Back: Normal Inspection, No CVA Tenderness, No Vertebral Tenderness Extremity: Normal Range of Motion, Non Tender Neurologic/Psychiatric: Alert, Oriented x3, No Motor/Sensory Deficits Skin: Normal Color, Warm/Dry Progress/Results/Core Measures Suspected Sepsis Recent Fever Within 48 Hours: No Infection Criteria Present: None New/Unexplained Altered Menta: No Sepsis Screen: No Definite Risk SIRS Temperature: Pulse: 80 Respiratory Rate: 16 Laboratory Tests 11/01/18 15:55: White Blood Count 8.0 Blood Pressure 187 /144 Mean: 158 Laboratory Tests 11/01/18 15:55: Creatinine 0.88, Platelet Count 280, Total Bilirubin 0.5 Results/Orders Lab Results Laboratory Tests Test 11/01/18 15:55 Range/Units White Blood Count 8.0 4.3-11.0 10^3/uL Red Blood Count 4.96 4.35-5.85 10^6/uL Hemoglobin 14.1 11.5-16.0 G/DL Hematocrit 41 35-52 % Mean Corpuscular Volume 83 80-99 FL Mean Corpuscular Hemoglobin 28 25-34 PG Mean Corpuscular Hemoglobin Concent 34 32-36 G/DL Red Cell Distribution Width 13.6 10.0-14.5 % Platelet Count 280 130-400 10^3/uL Mean Platelet Volume 9.1 7.4-10.4 FL Neutrophils (%) (Auto) 55 42-75 % Lymphocytes (%) (Auto) 32 12-44 % Monocytes (%) (Auto) 9 0-12 % Eosinophils (%) (Auto) 4 0-10 % Basophils (%) (Auto) 1 0-10 % Neutrophils # (Auto) 4.4 1.8-7.8 X 10^3 Lymphocytes # (Auto) 2.5 1.0-4.0 X 10^3 Monocytes # (Auto) 0.7 0.0-1.0 X 10^3 Eosinophils # (Auto) 0.3 0.0-0.3 10^3/uL Basophils # (Auto) 0.0 0.0-0.1 10^3/uL Sodium Level 141 135-145 MMOL/L Potassium Level 3.8 3.6-5.0 MMOL/L Chloride Level 103 98-107 MMOL/L Carbon Dioxide Level 27 21-32 MMOL/L Anion Gap 11 5-14 MMOL/L Blood Urea Nitrogen 10 7-18 MG/DL Creatinine 0.88 0.60-1.30 MG/DL Estimat Glomerular Filtration Rate > 60 BUN/Creatinine Ratio 11 Glucose Level 91 70-105 MG/DL Calcium Level 9.7 8.5-10.1 MG/DL Corrected Calcium 9.3 8.5-10.1 MG/DL Total Bilirubin 0.5 0.1-1.0 MG/DL Aspartate Amino Transf (AST/SGOT) 21 5-34 U/L Alanine Aminotransferase (ALT/SGPT) 15 0-55 U/L Alkaline Phosphatase 82 40-136 U/L Total Protein 8.0 6.4-8.2 GM/DL Albumin 4.5 3.2-4.5 GM/DL My Orders Orders - HAKAN BHARDWAJ MD Cbc With Automated Diff (11/01/18 15:53) Comprehensive Metabolic Panel (11/01/18 15:53) Ed Iv/Invasive Line Start (11/01/18 15:53) Ketorolac Injection (Toradol Injection) (11/01/18 15:53) Dexamethasone Injection (Decadron Inject (11/01/18 16:00) Amlodipine Tablet (Norvasc Tablet) (11/01/18 16:00) Hydralazine Injection (Apresoline Inject (11/01/18 16:00) Medications Given in ED Current Medications Medications Dose Ordered Sig/Adina Route Start Time Stop Time Status Last Admin Dose Admin Amlodipine Besylate 5 mg ONCE ONCE PO 11/01/18 16:00 11/01/18 16:01 DC 11/01/18 16:06 5 MG Dexamethasone Sodium Phosphate 10 mg ONCE ONCE IV 11/01/18 16:00 11/01/18 16:01 DC 11/01/18 16:05 10 MG Hydralazine HCl 10 mg ONCE ONCE IV 11/01/18 16:00 11/01/18 16:01 DC 11/01/18 16:05 10 MG Vital Signs/I&O 11/01/18 11/01/18 15:33 16:06 Temp 37.3 37.3 Pulse 80 Resp 16 B/P (MAP) 187/144 (158) Pulse Ox 99 O2 Delivery Room Air Capillary Refill : Less Than 3 Seconds Blood Pressure Mean: 158 Progress Note : Progress Note Seen and evaluated. IV, labs, hydralazine 10 mg IV, amlodipine 5 mg by mouth, Toradol 30 mg IV and dexamethasone 10 mg IV ordered. Monitor patient. 1700: Blood pressure improved to 150s over 90s and patient feels a whole bunch better. I did discuss the case with Dr. Rosa. He would like her to increase her m etoprolol to 50 mg by mouth twice a day and he will see her tomorrow. Patient is to call in the morning for appointment. I will send a copy of the chart to him. Discharged home with return precautions. Patient verbalize understanding instructions and agreement with plan. Departure Impression Primary Impression: Labile hypertension Additional Impression: Upper respiratory infection Qualified Codes: J06.9 - Acute upper respiratory infection, unspecified Disposition: 01 HOME, SELF-CARE Condition: Improved Departure-Patient Inst. Decision time for Depature: 17:04 Referrals: GWEN EDUARDO MD (PCP/Family) Primary Care Physician JAXSON ROSA MD FACP FACC CCDS Patient Instructions: High Blood Pressure (DC), Viral Upper Respiratory Infection, Adult (DC) Add. Discharge Instructions: All discharge instructions reviewed with patient and/or family. Voiced understanding. Increase your metoprolol to 50 mg twice daily (2 tablets twice daily) starting tonight. You need to follow-up with Dr. Rosa tomorrow. Call his office in the morning for appointment. You may use Afrin nasal spray or the generic, 12 hour relief, 2 sprays to each nostril twice daily for 3 days only and then stop. Do not use more than 3 days. You may take ibuprofen 600 mg every 8 hours as needed for pain. You may also take Tylenol/acetaminophen 1000 mg every 8 hours as needed for pain. HAKAN BHARDWAJ MD Nov 01, 2018 16:33
[2018-11-01 17:15] VITALS: BP 154/91
== END 2018-11-01 17:15 | disposition home or self-care (01) ==
LOC: EDUNIT# 15:32 → ER 15:32
DX: R03.0 Elevated blood-pressure reading, without diagnosis of hypertension (principal); J06.9 Acute upper respiratory infection, unspecified; F32.9 Major depressive disorder, single episode, unspecified; F41.9 Anxiety disorder, unspecified; D64.9 Anemia, unspecified; Z87.891 Personal history of nicotine dependence; Z98.890 Other specified postprocedural states
CPT/HCPCS: 36415; 80053; 85025

== ENCOUNTER → 2020-01-31 | Outpatient (CLI) | payer BC ==
[~2020-01-31] MED LIST changes: +DOXY100C2; -OXYC-465 PO; +OXYC-556 PO
--- NOTE | 2020-02-01 14:07 | Diagnostic Imaging Report ---
INDICATION: Routine screening. COMPARISON is made with prior mammograms of 08/24/2018 and 05/28/2017. 2-D and 3-D bilateral screening mammography was performed with CAD. Both breasts are heterogeneous and dense, limiting the sensitivity of mammography. The parenchymal pattern is stable. No mass or malignant appearing microcalcifications are seen. Axillae are unremarkable. IMPRESSION: BI-RADS Category 1 No mammographic features suspicious for malignancy are identified. Dictated by: Dictated on workstation # [id number]
== END ==
LOC: RAD 15:45
PROVIDERS: ATTEND Nurse Practitioner Family
DX: Z12.31 Encounter for screening mammogram for malignant neoplasm of breast (principal)
CPT/HCPCS: 77063; 77067

== ENCOUNTER → 2020-04-29 | Outpatient (CLI) | payer BC | LOC: CARD 14:00 | PROVIDERS: ATTEND Internal Medicine Cardiovascular Disease | DX: R00.2 Palpitations (principal) | CPT/HCPCS: 93225; 93226; 93306 ==

== ENCOUNTER → 2021-02-13 | Outpatient (CLI) | payer BC ==
[~2021-02-13] MED LIST changes: -DOXY100C2; +DOXY100C5; +GADOTERATE 0.5 MMOL/ML (CLARISCAN) 20 ML VIAL IV ONE
--- NOTE | 2021-02-13 09:35 | Diagnostic Imaging Report ---
CLINICAL INDICATIONS: Patient with papilledema. EXAM: MRI of the brain and orbits performed without and with 18 mL of Clariscan IV contrast. Multiplanar multisequence imaging is obtained. COMPARISON: Head CT without contrast dated 07/21/2017. MRI of the brain performed without and with IV contrast dated 04/05/2018. FINDINGS: There is no evidence of acute cerebral infarct, intracranial hemorrhage, or gross mass effect. The orbits and globes are unremarkable with normal appearance. The visualized portions of the intraorbital optic nerves, optic tracts, and optic chiasm are unremarkable. There is no abnormal IV contrast enhancement. There is no retrobulbar mass or fluid collection. There is no inflammatory process of the orbits and globes seen. The optic nerve dural sheaths appear grossly similar to the prior study. There is no gross flattening of the optic discs on this exam. The brain parenchymal volume appears appropriate for patient's age. There is normal degroot-white matter distinction. There is no significant midline shift or herniation. The lower b[place] of [place] vascular structures show no gross abnormality as visualized. The pituitary gland, sella, and suprasellar regions are unremarkable as visualized. There is no evidence of hydrocephalus. The basal cisterns are unremarkable. The skull, extracranial soft tissue, and orbits are unremarkable. There is minimal mucosal thickening involving ethmoid sinus. Temporal bones show no significant abnormality. IMPRESSION: Unremarkable MRI of the brain and orbits. Dictated by: Dictated on workstation # [id number]
== END ==
LOC: RAD 08:45
PROVIDERS: ATTEND Optometrist
DX: H47.10 Unspecified papilledema (principal)
CPT/HCPCS: 70553

== ENCOUNTER → 2021-03-06 | Outpatient (CLI) | payer BC ==
[~2021-03-06] MED LIST changes: -GADOTERATE 0.5 MMOL/ML (CLARISCAN) 20 ML VIAL IV ONE
--- NOTE | 2021-03-06 13:30 | Diagnostic Imaging Report ---
INDICATION: Routine screening. COMPARISON is made with prior mammogram from 01/31/2020 and 08/24/2018. 2-D and 3-D bilateral screening mammography was performed with CAD. Both breasts are heterogeneously dense, limiting the sensitivity of mammography. The parenchymal pattern is stable. No mass or malignant-appearing microcalcifications are seen. Axillae are unremarkable. IMPRESSION: BI-RADS Category 1 No mammographic features suspicious for malignancy are identified. ACR BI-RADS Category 1: Negative. Result letter will be mailed to the patient. Note: At least 10% of breast cancer is not imaged by mammography. Dictated by: Dictated on workstation # [id number]
== END ==
LOC: RAD 11:15
PROVIDERS: ATTEND Family Medicine
DX: Z12.31 Encounter for screening mammogram for malignant neoplasm of breast (principal)
CPT/HCPCS: 77063; 77067

== ENCOUNTER → 2022-05-05 | Outpatient (CLI) | payer BC ==
--- NOTE | 2022-05-05 15:26 | Diagnostic Imaging Report ---
EXAMINATION: 3D bilateral screening mammogram with CAD. INDICATION: Screening. COMPARISON: This study was compared to the prior exams of 03/06/2021, 01/31/2020, and 08/24/2018. PERSONAL HISTORY: At this time, there are no current complaints. FINDINGS: The fibroglandular tissue in both breasts is heterogeneously dense. This does limit the sensitivity of this exam. Overall, there does not appear to have been any significant change when compared to the prior study. No primary or secondary sign of malignancy is noted. IMPRESSION: There is no radiographic evidence for malignancy. ACR BI-RADS Category 1: Negative. Result letter will be mailed to the patient. Note: At least 10% of breast cancer is not imaged by mammography. Dictated by: Dictated on workstation # [id number]
== END ==
LOC: RAD 09:41
PROVIDERS: ATTEND Family Medicine
DX: Z12.31 Encounter for screening mammogram for malignant neoplasm of breast (principal)
CPT/HCPCS: 77063; 77067